=== PATIENT | male | born 1980 | race Caucasian/White ===

== ENCOUNTER 2020-04-29 05:50 | Emergency (ER) | payer BC ==
[~2020-04-29] VITALS: Ht 182.9 cm; Wt 136.1 kg
[2020-04-29 05:50] VITALS: BP_SYST 127
[2020-04-29 07:35] VITALS: BP_SYST 127
== END 2020-04-29 07:35 ==
LOC: SED 05:50
DX: R50.9 Fever, unspecified (principal); M79.18 Myalgia, other site; Z20.828 Contact with and (suspected) exposure to other viral communicable diseases
CPT/HCPCS: 99285; C9803; U0003